=== PATIENT | female | born 1950 | race Caucasian/White ===

== ENCOUNTER 2016-10-06 11:45 | Inpatient (IN) | payer OTHER, MEDICARE ==
[2017-04-29] MEDS ORDERED: MORPHINE SULFATE 15 MG TABLET.SA PO PRN (06:00)
[2017-04-29] MEDS ORDERED: ROPIVACAINE HCL/PF 100 MG, KETOROLAC TROMETHAMINE 30 MG, EPINEPHrine 0.2 MG in NORMAL S... IJ PRN (06:00)
[2017-04-29] MEDS ORDERED: ceFAZolin SODIUM 1 GM VIAL IV PRN (06:00)
[2017-04-29] MEDS: RINGERS SOLUTION,LACTATED 1,000 ML IV PRN ×2 (06:30→07:55)
[2017-04-29] MEDS: TRANEXAMIC ACID 1,000 MG in NORMAL SALINE 100 ML IV PRN ×2 (09:01→09:30)
[2017-04-29] MEDS ORDERED: ZOLPIDEM TARTRATE 5 MG TABLET PO PRN (10:16)
[2017-04-29] MEDS ORDERED: ACETAMINOPHEN 500 MG TABLET PO PRN (10:16)
[2017-04-29] MEDS ORDERED: MAG HYDROX/ALUMINUM HYD/SIMETH 30 ML UDC PO PRN (10:16)
[2017-04-29] MEDS ORDERED: ONDANSETRON HCL/PF 2 MG/ML VIAL IV PRN (10:16)
[2017-04-29] MEDS ORDERED: MAGNESIUM HYDROXIDE 30 ML UDC PO PRN (10:16)
[2017-04-29] MEDS ORDERED: diphenhydrAMINE HCL 50 MG/ML VIAL IV PRN (10:16)
[2017-04-29] MEDS ORDERED: HYDROmorphone HCL 1 MG/ML DISP.SYRIN IV PRN (10:16)
[2017-04-29] MEDS ORDERED: PROMETHAZINE HCL 5 MG in DEXTROSE 5 % IN WATER 50 ML IV PRN ×2 (10:16)
--- NOTE | 2017-04-29 10:22 | OR ---
Operative Report - Dictated Report Narrative: Date: 04/29/2017 Preoperative diagnosis: Right Knee degenerative joint disease. Postoperative diagnosis: Right Knee degenerative joint disease. Procedure: Right Total knee arthroplasty. Surgeon: David Rowland M.D. Criminal Intelligence Analyst: Dmitri Medina PA-C Anesthesia: Spinal with regional block and local periarticular joint injection. Complications: None Specimens: Bone for disposal. Estimated blood loss: Minimal. Tourniquet time: 87 Minutes at 350 millimeters of mercury. Retained implants: Depuy Attune size 6 right lugged cemented posterior stabilized femoral component. Size 5 fixed-bearing cemented tibial platform. 6 by 7 millimeter posterior stabilized cross-linked tibial insert. 35 millimeter medialized patella button. Indications: Mrs. Hamilton is a 67-year-old female who has had long-standing right knee pain. This patient was followed in my clinic for period of time with significant complaints of right knee pain consistent with arthritic changes. They had failed conservative measures including, but not limited to, activity modification, passage of time, medications, and other conservative measures. Patient wished to proceed with surgical treatment. The risks, benefits, and alternatives were discussed in clinic. The risks of , blood clots, bleeding, infection, nerve/tendon blood vessel/ injury, malposition of components, intraoperative fracture, postoperative limited range of motion, persistent pain, failure of components, and need for additional procedures. Patient wished to proceed consent was obtained after answering all questions. Procedure: After marking the correct extremity on the floor, the patient was taken to the operating room. A timeout was performed. IV antibiotics consisting of Ancef were administered prior to the procedure. A regional followed by spinal anesthetic was induced by anesthesia on the operative table with all bony prominences well-padded. Muñoz catheter was placed, and a bump was placed under the operative side buttock. SCDs and NATHANIEL hose were utilized on the nonoperative leg. A well-padded tourniquet was applied to the operative thigh. The operative leg was then pre-scrubbed with ajay cedeño prepped, and draped in a standard sterile fashion. After exsanguinating the extremity with an Esmarch bandage, the tourniquet was inflated. After marking out the anterior knee for standard incision centered over the patella, the skin was incised and dissected down to the joint retinaculum. The joint retinaculum was marked out as well as the horizontal axis of the patella, and a standard medial parapatellar arthrotomy was then made. The most proximal aspect of the quadriceps tendon and the patella tendon insertion were protected from release. A partial synovectomy was performed as well as a resection of the infrapatellar fat pad. The distal femoral fat pad proximal to the trochlea was also resected using cautery. The soft tissues were elevated off the medial aspect of the proximal tibia using a Chávez elevator ensuring that we did not transect the medial collateral ligament. Upon initial evaluation range of motion was approximately 0 degrees to 120 degrees of flexion. There were signs of advanced arthrosis in the medial, lateral, and patellofemoral joint spaces. There were large marginal osteophytes which were removed with a rongeur. The knee was hyperflexed and the patella was tucked laterally. Protecting the surrounding soft tissues with Homans, an entry drill was placed down the femoral canal using Whitesides line for guidance into the entry point. The intramedullary femoral alignment veronica was utilized in order to cut the distal femur in 5 degrees of valgus resecting 10 millimeters of bone. Next the distal femur was sized to a size 6. A posterior referencing guide was utilized to place the distal femoral cutting block in 3 degrees of external rotation. This was pinned into place. The rotation was confirmed both visually and based on anatomic landmarks. The 4 in 1 cutting jig of the appropriate size was utilized in order to make all bony cuts. The angle wing was used to ensure no notching. Retractors were utilized in order to protect surrounding soft tissues. This cut did not result in any excessive notching. We then cut the box centered over the distal femur. This allowed for resection of the anterior and posterior cruciate ligaments. I then turned my attention to the preparation of the tibia. Using an extra medullary tibial alignment veronica, 4 millimeters of bone was resected off the medial articular surface. This was made perpendicular to the mechanical axis of the joint with the alignment veronica centered over the ankle mortise. The alignment veronica was checked and was noted to be parallel to the mechanical axis, centered over the medial one third of the tibial tubercle, paralleling the anterior surface of the tibia. We then turned our attention to the remaining meniscus and soft tissues. These were removed while protecting the surrounding ligaments and soft tissues. The marginal osteophytes off the anterior, posterior, medial, lateral aspects of the femur and tibia were removed. The tibia was sized out to a size 5. Next the tibia was drilled and punched in an externally rotated position. Next the trial femur and a series of tibial inserts were utilized in order to allow for full extension and maximal flexion. It was found that a 7 millimeter insert gave the best range of motion and stability at multiple flexion points as well as at full extension there was less than 2 mm of gapping both medially and laterally. There is minimal anterior translation with the knee at 90 degrees of flexion and no signs of being able to dislocate the knee. The patella was then prepared. The initial thickness was 21 millimeters. This was reamed down to 12 millimeters parallel to the anterior surface of the patella. It was sized out to a size 35 medialized patella button. This was then drilled and trialed. Without any medial restraint the patella tracked appropriately and did not sublux or dislocate. At this point, it was felt these were the appropriate sized implants, and all trials were removed. The standard periarticular joint injection consisting of ropivacaine, Toradol, and epinephrine were injected into the periarticular joint tissues. The bony surfaces were thoroughly irrigated with a pulsatile- suction saline irrigation device. A bone plug from the prior resected anterior chamfer cut was placed into the drill hole at the distal femur. The bony surfaces were then dried in preparation for placement of the implants. The cement was vacuum mixed per the ear mold laboratory technician's instructions. The cement was placed on the dry bony surfaces and posterior aspect of the implants. The implants were impacted into place, removing all extruded cement. At this point anesthesia administered tranexamic acid per protocol intravenously. The knee was placed in extension with axial loading with the trial insert while the cement cured. Once the cement cured, all remaining extruded cement was removed. The knee was placed through a range of motion with the trial insert to ensure appropriate range of motion and stability. Final range of motion was approximately 0 to 120 degrees. The knee was again thoroughly irrigated with pulsatile saline lavage. The final polyethylene insert was then impacted into place ensuring no retained soft tissues. The remaining periarticular joint injection was injected. A medium Hemovac drain was placed exiting superior laterally. The knee was then placed over a triangle and the arthrotomy was closed with interrupted #1 Vicryl after thoroughly irrigating the joint. The deep and subcutaneous tissues were closed with interrupted oh and 3-0 Vicryl respectively. Skin was closed with a running subcutaneous 3-0 Monocryl and Prineo Dermabond dressing. 4 x 4's, Sof-Rol, and a full leg Yandel wrap were applied. All sponge, needle, blade, and instrument counts were correct prior to closing the wounds. Postoperative condition: The patient was awoken and transferred to the postanesthesia care unit in stable condition. Plan is to be admitted to the inpatient medical/surgical floor postoperatively for 24 hours of IV antibiotics , physical therapy, occupational therapy, and medical comanagement. Patient will be weightbearing as tolerated with range of motion as tolerated. DVT prophylaxis will be with SCDs, NATHANIEL hose, and pharmacological anticoagulation. Anticipated hospital stay is approximately 2-4 days.
[2017-04-29] MEDS: DEXTROSE 5%-LACTATED RINGERS 1,000 ML IV PRN ×2 (11:02→20:00)
[2017-04-29] MEDS: ceFAZolin SODIUM 1 GM in DEXTROSE 5 % IN WATER 100 ML IV SCH ×6 (11:50→23:44)
[2017-04-29] MEDS: KETOROLAC TROMETHAMINE 15 MG/ML VIAL IV SCH ×3 (11:50→23:45)
--- NOTE | 2017-04-29 19:32 | PN ---
Subjective - Date and Time Seen Date: 04/29/17 Time: 19:25 Subjective Narrative: Patient jus had operation this morning. He is afebrile and has no complaints . Eager to start PT/OT. Objective - Review of Systems Generalized/Overall Review: Reports: Weight gain. Denies: Weakness, Chills, Fever EENTM: Reports: No Symptoms Reported Respiratory: Denies: Cough, Shortness of Breath Cardiac: Denies: Chest Pain, Edema, Palpitations Abdominal: Denies: Nausea, Vomiting Genitourinary Symptoms: Denies: Urgency, Frequency - Vitals Vitals: Last Vital Signs Temp 36.9 C 04/29/17 18:00 Pulse 69 04/29/17 18:00 Resp 16 04/29/17 18:00 BP 140/71 04/29/17 18:00 Pulse Ox 100 04/29/17 18:00 - Exam Constitutional: Present: Alert, Oriented x3, Morbidly obese ENT Exam: Present: hearing grossly normal Neck: Present: supple Respiratory: Present: normal breath sounds, No rales, No wheezing Cardiovascular/Chest: Present: regular rate, rhythm, no gallop, no JVD Abdomen: Present: Normal bowel sounds, soft, nontender, nondistended Extremity: Present: no pedal edema, no calf tenderness Cauti Physician Documentation - Urinary Catheter Management Urethral (Muñoz) Date of Insertion: 04/29/17 Assessment/Plan - Problems/Diagnosis (1) Status post total right knee replacement Problem: Acute Narrative: for PT/OT (2) Hypertension Problem: Chronic Qualifiers: Hypertension type: essential hypertension Qualified Code(s): I10 - Essential (primary) hypertension (3) Hyperlipidemia Problem: Chronic (4) Anxiety and depression Problem: Chronic (5) GERD (gastroesophageal reflux disease) Problem: Chronic Qualifiers: Esophagitis presence: without esophagitis Qualified Code(s): K21.9 - Gastro -esophageal reflux disease without esophagitis
[2017-04-29] MEDS: SENNOSIDES/DOCUSATE SODIUM 1 TAB TABLET PO SCH (19:59)
[2017-04-29] MEDS: MORPHINE SULFATE 15 MG TABLET.SA PO SCH (19:59)
[2017-04-30] MEDS: KETOROLAC TROMETHAMINE 15 MG/ML VIAL IV SCH ×4 (04:31→22:43)
[2017-04-30 05:28] LABS: Hematocrit 32.4 % (37.0-47.0); Hemoglobin 10.7 gm/dL (12.5-16.0); Mean Corpuscular Hemoglobin 30.4 pg (27-31); Mean Platelet Volume 10.2 fl (6.0-9.5); Platelet Count 226 K/mm3 (150-450); Red Blood Count 3.52 M/mm3 (4.2-5.4); Red Cell Distribution Width 12.8 % (11.5-14.0); White Blood Count 9.1 K/mm3 (4.0-10.5)
[2017-04-30 05:39] LABS: Anion Gap 9.4 mmol/L (6.8-13.8); BUN/Creatinine Ratio 17.3 (9.0-21.6); Carbon Dioxide 29.5 mmol/L (24-32.6); Potassium 3.9 mmol/L (3.4-4.6)
[2017-04-30] MEDS: oxyCODONE HCL/ACETAMINOPHEN 1 TAB TABLET PO PRN ×2 (07:28→18:39)
--- NOTE | 2017-04-30 07:49 | PN ---
Subjective - Date and Time Seen Date: 04/30/17 Time: 07:47 Subjective Narrative: Subjective: Reports no pain but some mild stiffness. Was able to walk in the chatterjee with therapy. Pain is well-controlled. Voiding without any complications. Tolerating by mouth intake. Denies any nausea or vomiting. Denies calf pain. Slept well. Physical exam: Alert and oriented to person, place and time Right lower Extremity: Palpable dorsalis pedis pulse. Sensation grossly intact to light touch. Dressings clinic dry. Able to flex and extend ankle and toes. No excessive drainage. Calf and thigh are soft and nontender. Assessment: Postop day 1 status post right total knee arthroplasty. Plan: Continue with physical and occupational therapy weightbearing as tolerated. Continue with anticoagulation. 24 hours postoperative prophylactic antibiotics. Pain control with goal to rely on oral medications. Continue bowel regimen. Will need 6 weeks with walker or assitive device to protect joint while ambulating during the recovery process. Discharge planning. Discontinue drain and Muñoz catheter. Repeat labs in a.m. Objective - Vitals Vitals: Last Vital Signs Temp 36.8 C 04/30/17 02:00 Pulse 76 04/30/17 02:00 Resp 16 04/30/17 02:00 BP 127/70 04/30/17 02:00 Pulse Ox 97 04/30/17 02:00 - Abnormal Lab Findings Abnormal Lab Findings: Abnormal Lab Results 04/30/17 Range/Units 05:18 RBC 3.52 L (4.2-5.4) M/mm3 Hgb 10.7 L (12.5-16.0) gm/dL Hct 32.4 L (37.0-47.0) % MPV 10.2 H (6.0-9.5) fl - Exam Constitutional: Present: Alert, Oriented x3 Cauti Physician Documentation - Urinary Catheter Management Urethral (Muñoz) Date of Insertion: 04/29/17 Assessment/Plan - Problems/Diagnosis (1) Acute blood loss anemia Problem: Chronic (2) Hyperlipidemia Problem: Chronic (3) Status post total right knee replacement Problem: Acute (4) Anxiety and depression Problem: Chronic (5) Hypertension Problem: Chronic Qualifiers: Hypertension type: essential hypertension Qualified Code(s): I10 - Essential (primary) hypertension (6) GERD (gastroesophageal reflux disease) Problem: Chronic
[2017-04-30] MEDS: ENOXAPARIN SODIUM 40 MG/0.4 ML SYRG SC SCH (09:18)
[2017-04-30] MEDS: MORPHINE SULFATE 15 MG TABLET.SA PO SCH ×2 (09:18→20:46)
--- NOTE | 2017-04-30 09:43 | PN ---
Subjective - Date and Time Seen Date: 04/30/17 Time: 09:42 Subjective Narrative: POD # 1 . Afebrile Tmax 36.9. Says pain is not bothering but more of the leg stiffness. Objective - Review of Systems Generalized/Overall Review: Denies: Chills, Fever EENTM: Reports: No Symptoms Reported Respiratory: Denies: Cough, Shortness of Breath, Orthopnea Cardiac: Denies: Chest Pain, Edema, Palpitations Abdominal: Denies: Nausea, Vomiting Genitourinary Symptoms: Denies: Urgency, Frequency Musculoskeletal Complaints: Reports: Joint Pain - minimal - Vitals Vitals: Last Vital Signs Temp 36.8 C 04/30/17 02:00 Pulse 76 04/30/17 02:00 Resp 16 04/30/17 02:00 BP 127/70 04/30/17 02:00 Pulse Ox 97 04/30/17 02:00 - Abnormal Lab Findings Abnormal Lab Findings: Abnormal Lab Results 04/30/17 Range/Units 05:18 RBC 3.52 L (4.2-5.4) M/mm3 Hgb 10.7 L (12.5-16.0) gm/dL Hct 32.4 L (37.0-47.0) % MPV 10.2 H (6.0-9.5) fl - Exam Constitutional: Present: Alert, Oriented x3, Cooperative, Morbidly obese ENT Exam: Present: hearing grossly normal Neck: Present: supple Breasts: Present: Exam deferred Respiratory: Present: normal breath sounds, No rales, No wheezing Cardiovascular/Chest: Present: regular rate, rhythm, no JVD, no murmur Abdomen: Present: Normal bowel sounds, soft, nontender, nondistended Extremity: Present: no pedal edema, no calf tenderness Cauti Physician Documentation - Urinary Catheter Management Urethral (Muñoz) Date of Insertion: 04/29/17 Date of Removal: 04/30/17 Time of Removal: 07:28 Assessment/Plan - Problems/Diagnosis (1) Status post total right knee replacement Problem: Acute Narrative: POD # 1. continue with PT/OT. (2) Hypertension Problem: Chronic Qualifiers: Hypertension type: essential hypertension Qualified Code(s): I10 - Essential (primary) hypertension (3) Hyperlipidemia Problem: Chronic (4) Anxiety and depression Problem: Chronic (5) GERD (gastroesophageal reflux disease) Problem: Chronic Qualifiers: Esophagitis presence: without esophagitis Qualified Code(s): K21.9 - Gastro -esophageal reflux disease without esophagitis Narrative: nimo restart her omperazole. (6) Acute blood loss anemia Problem: Chronic
[2017-04-30] MEDS ORDERED: ALBUTEROL SULFATE 2.5 MG/3 ML VIAL.NEB IH PRN (10:12)
[2017-04-30] MEDS ORDERED: PANTOPRAZOLE SODIUM 20 MG TABLET.DR PO ONE (11:00)
[2017-04-30] MEDS: METOPROLOL TARTRATE 50 MG TABLET PO SCH (20:46)
[2017-04-30] MEDS: SENNOSIDES/DOCUSATE SODIUM 1 TAB TABLET PO SCH (20:47)
[2017-05-01] MEDS: oxyCODONE HCL/ACETAMINOPHEN 1 TAB TABLET PO PRN ×2 (01:44→11:52)
[2017-05-01] MEDS: KETOROLAC TROMETHAMINE 15 MG/ML VIAL IV SCH (04:50)
[2017-05-01 06:00] LABS: Hematocrit 32.5 % (37.0-47.0); Hemoglobin 10.4 gm/dL (12.5-16.0); Mean Cell Volume 93.9 fl (78-100); Mean Corpuscular Hemoglobin 30.1 pg (27-31); Mean Platelet Volume 10.1 fl (6.0-9.5); Platelet Count 209 K/mm3 (150-450); Red Blood Count 3.46 M/mm3 (4.2-5.4); Red Cell Distribution Width 12.7 % (11.5-14.0); White Blood Count 8.6 K/mm3 (4.0-10.5)
[2017-05-01 06:07] LABS: Anion Gap 7.4 mmol/L (6.8-13.8); BUN/Creatinine Ratio 11.4 (9.0-21.6); Calcium * 8.9 mg/dL (7.9-10.9); Carbon Dioxide 31.4 mmol/L (24-32.6); Estimated Creat Clear 66.4; Potassium 3.8 mmol/L (3.4-4.6)
[2017-05-01 06:58] VITALS: BP 123/51
[2017-05-01] MEDS ORDERED: PANTOPRAZOLE SODIUM 20 MG TABLET.DR PO SCH (07:00)
--- NOTE | 2017-05-01 08:42 | PN ---
Subjective - Date and Time Seen Date: 05/01/17 Time: 08:36 Subjective Narrative: Patient has done the steps w/o problems. She does have some cough and noticed wheeziness earlier. Tmax 37.7. Objective - Review of Systems Generalized/Overall Review: Denies: Chills EENTM: Reports: No Symptoms Reported Respiratory: Reports: Cough, Wheezing Cardiac: Denies: Chest Pain, Edema, Palpitations Abdominal: Denies: Nausea, Vomiting Genitourinary Symptoms: Denies: Urgency, Frequency Musculoskeletal Complaints: Reports: Joint Pain - Vitals Vitals: Last Vital Signs Temp 36.9 C 05/01/17 06:57 Pulse 66 05/01/17 06:57 Resp 18 05/01/17 06:57 BP 123/51 05/01/17 06:57 Pulse Ox 96 05/01/17 06:57 - Abnormal Lab Findings Abnormal Lab Findings: Abnormal Lab Results 05/01/17 Range/Units 05:38 RBC 3.46 L (4.2-5.4) M/mm3 Hgb 10.4 L (12.5-16.0) gm/dL Hct 32.5 L (37.0-47.0) % MPV 10.1 H (6.0-9.5) fl - Exam Constitutional: Present: Oriented x3, Cooperative ENT Exam: Present: hearing grossly normal Neck: Present: supple Breasts: Present: Exam deferred Respiratory: Present: normal breath sounds, No rales, No wheezing Cardiovascular/Chest: Present: regular rate, rhythm, no JVD, no murmur Abdomen: Present: Normal bowel sounds, soft, nontender, nondistended Extremity: Present: no pedal edema, no calf tenderness Cauti Physician Documentation - Urinary Catheter Management Urethral (Muñoz) Date of Insertion: 04/29/17 Date of Removal: 04/30/17 Time of Removal: 07:28 Assessment/Plan - Problems/Diagnosis (1) Status post total right knee replacement Problem: Acute Narrative: POD # 2. Continue PT/OT. (2) Hypertension Problem: Chronic Qualifiers: Hypertension type: essential hypertension Qualified Code(s): I10 - Essential (primary) hypertension Narrative: controlled (3) Hyperlipidemia Problem: Chronic (4) Anxiety and depression Problem: Chronic (5) GERD (gastroesophageal reflux disease) Problem: Chronic Qualifiers: Esophagitis presence: without esophagitis Qualified Code(s): K21.9 - Gastro -esophageal reflux disease without esophagitis (6) Wheezing Problem: Acute Narrative: per patient. I did not hear it on my auscultation. she has bronchodilator PRN. she was told to do lozenges or warm saline gurgles. if not better will start antibiotics.
--- NOTE | 2017-05-01 08:58 | DS ---
(1) Acute blood loss anemia Problem: Acute (2) Hyperlipidemia Problem: Chronic (3) Status post total right knee replacement Problem: Acute (4) Anxiety and depression Problem: Chronic (5) Hypertension Problem: Chronic Qualifiers: Hypertension type: essential hypertension Qualified Code(s): I10 - Essential (primary) hypertension (6) GERD (gastroesophageal reflux disease) Problem: Chronic Qualifiers: Esophagitis presence: without esophagitis Qualified Code(s): K21.9 - Gastro -esophageal reflux disease without esophagitis Description of Stay: Mrs. Hamilton was admitted to the floor after undergoing right total knee arthroplasty. Tolerated this well. Was admitted to the floor postoperatively for 24 hours of IV antibiotics, pain control, medical comanagement, and occupational and physical therapy. OT and PT were consulted to assist with activities of daily living and ambulation. Was made weightbearing as tolerated with range of motion as tolerated. Pain was initially controlled with IV regimen. This was transitioned to oral once tolerating a by mouth intake. Was resumed on home diet and medications. Had a Muñoz catheter inserted and the operating room which was discontinued on postoperative day 1. A drain was placed intraoperatively into the knee which was discontinued on postoperative day 1. Lovenox SCD and NATHANIEL hose were utilized for DVT prophylaxis. Vital signs remained stable to the hospital course. Serial labs were obtained which showed a final hemoglobin of 10.4 grams. BMP was reviewed and was stable. Physical examination throughout the hospital course showed an extremity that had sensation that was intact to light touch, palpable pulses, a benign wound, motor intact to the toes, ankle, and knee. Knee range of motion was approximately 0 degrees to 70 degrees. Once an oral pain regimen was tolerated and physical therapy goals were met, it was felt that they were stable for discharge to home. Instructions: Continue with weightbearing as tolerated and range of motion as tolerated. She is okay to shower as long as there is no drainage. She is instructed to keep the wound clean and dry. If there is any drainage she is instructed to cover with dry gauze and tape. Change every 2-3 days as needed. Continue with physical therapy. Resume home diet. Report any fever over 101.5 Fahrenheit, uncontrolled pain, increased drainage, foul odor of drainage, new or increased calf pain or shortness of breath, or any other significant complaints. A 325mg dialy aspirin will be started after finishing anticoagulation if not allergic. Continue with NATHANIEL hose on the operative extremity until instructed otherwise. No driving until instructed otherwise. Follow up in approximately 10-14 days. Procedures Performed: see notes below List Procedures: Right total knee arthroplasty Discharge Disposition: Home self care Disposition: Home self-care Condition: Good Discharge Activity: Activity as tolerated, Weight bearing Discharge Diet: General/regular food Fdc Therapy: Physicial Therapy Referrals: Cathryn Montes MD [Primary Care Provider] - Additional Patient Instructions (free text): Follow up with Dr. Rowland on April at 9:30 Am. Prescriptions (Any new or edited meds): Enoxaparin Sodium [Lovenox] 40 mg SC Q24H #7 disp.syrin Morphine Sulfate [Ms Contin] 15 mg PO Q12H #20 tablet.sa oxyCODONE HCL/ACETAMINOPHEN [Percocet 5 MG/325 MG] 2 tab PO Q4H PRN #90 tablet PRN Reason: Moderate Pain Complete Home Medications List: Complete Home Medication List: Furosemide [Lasix] 40 mg PO DAILY 10/24/13 Metoprolol Tartrate [Lopressor] 50 mg PO BID 10/24/13 Omeprazole [Prilosec] 20 mg PO DAILY 10/24/13 Albuterol Sulfate [Proair Hfa] 1 puff IH Q4H PRN 04/06/17 Fenofibrate [Lofibra] 160 mg PO DAILY 04/06/17 Naproxen Sodium [Aleve] 220 mg PO BID PRN 04/06/17 Potassium Chloride [Klor-Con 10] 10 meq PO DAILY 04/06/17 Venlafaxine HCl [Venlafaxine HCl ER] 225 mg PO DAILY 04/06/17 Enoxaparin Sodium [Lovenox] 40 mg SC Q24H #7 disp.syrin 05/01/17 Morphine Sulfate [Ms Contin] 15 mg PO Q12H #20 tablet.sa 05/01/17 Sennosides/Docusate Sodium [Senokot-S] 2 tab PO HS tablet 05/01/17 oxyCODONE HCL/ACETAMINOPHEN [Percocet 5 MG/325 MG] 2 tab PO Q4H PRN #90 tablet 05/01/17 Amb Orders for Discharge: PT Evaluation and Treatment Facility: [facility], Location: Rehabilitation Services
[2017-05-01] MEDS ORDERED: VENLAFAXINE HCL 225 MG PO SCH (09:00)
[2017-05-01] MEDS ORDERED: POTASSIUM CHLORIDE 10 MEQ TABLET.SA PO SCH (09:00)
[2017-05-01] MEDS ORDERED: FUROSEMIDE 40 MG TABLET PO SCH (09:00)
[2017-05-01] MEDS ORDERED: VENLAFAXINE HCL 150 MG, VENLAFAXINE HCL 75 MG PO SCH ×2 (09:00)
[2017-05-01] MEDS: METOPROLOL TARTRATE 50 MG TABLET PO SCH (09:02)
[2017-05-01] MEDS: ENOXAPARIN SODIUM 40 MG/0.4 ML SYRG SC SCH (09:04)
[2017-05-01] MEDS: MORPHINE SULFATE 15 MG TABLET.SA PO SCH (09:07)
== END 2017-05-01 16:00 | disposition home or self-care (01) | DRG 470 ==
LOC: MS 04-29 05:47
PROVIDERS: ADMIT Orthopaedic Surgery; ATTEND Orthopaedic Surgery
PROC: 0SRC0J9 Replacement of Right Knee Joint with Synthetic Substitute, Cemented, Open Approach (ICD-10-PCS; principal; 2017-04-29 08:00)
DX: M17.0 Bilateral primary osteoarthritis of knee (principal); D62 Acute posthemorrhagic anemia; F41.8 Other specified anxiety disorders; I10 Essential (primary) hypertension; E78.5 Hyperlipidemia, unspecified; K21.9 Gastro-esophageal reflux disease without esophagitis

== ENCOUNTER 2017-05-21 11:36 | Inpatient (IN) | payer OTHER, MEDICARE ==
[2017-05-21] MEDS ORDERED: ONDANSETRON HCL/PF 2 MG/ML VIAL IV PRN (12:00)
[2017-05-21] MEDS ORDERED: PROMETHAZINE HCL 25 MG in DEXTROSE 5 % IN WATER 50 ML IV PRN ×2 (12:00)
[2017-05-21] MEDS ORDERED: HYDROcodone/ACETAMINOPHEN 1 EACH TABLET PO PRN (12:00)
[2017-05-21] MEDS ORDERED: diphenhydrAMINE HCL 50 MG/ML VIAL IV PRN (12:00)
[2017-05-21] MEDS ORDERED: MAG HYDROX/ALUMINUM HYD/SIMETH 30 ML UDC PO PRN (12:00)
[2017-05-21] MEDS ORDERED: ACETAMINOPHEN 500 MG TABLET PO PRN (12:00)
[2017-05-21] MEDS: HYDROmorphone HCL 2 MG/ML VIAL IV PRN ×3 (14:20→23:12)
[2017-05-21] MEDS ORDERED: FUROSEMIDE 40 MG TABLET PO PRN (16:43)
[2017-05-21] MEDS ORDERED: SENNOSIDES/DOCUSATE SODIUM 1 TAB TABLET PO PRN (16:43)
[2017-05-21] MEDS ORDERED: POTASSIUM CHLORIDE 10 MEQ TABLET.SA PO PRN (17:00)
[2017-05-21] MEDS: METOPROLOL TARTRATE 50 MG TABLET PO SCH (21:46)
[2017-05-22] MEDS: PANTOPRAZOLE SODIUM 20 MG TABLET.DR PO SCH (06:34)
[2017-05-22] MEDS: HYDROmorphone HCL 2 MG/ML VIAL IV PRN ×4 (06:36→22:33)
[2017-05-22] MEDS: VENLAFAXINE HCL 150 MG, VENLAFAXINE HCL 75 MG PO SCH ×2 (08:42)
[2017-05-22] MEDS: METOPROLOL TARTRATE 50 MG TABLET PO SCH ×2 (08:43→20:50)
[2017-05-22] MEDS: FENOFIBRATE,MICRONIZED 134 MG CAPSULE PO SCH (08:44)
[2017-05-22] MEDS ORDERED: VENLAFAXINE HCL 225 MG PO SCH (09:00)
--- NOTE | 2017-05-22 11:20 | PREOP NOTE ---
Preoperative Progress Note - Preoperative Changes Changes to Preop Condition?: No Changes
[2017-05-22] MEDS ORDERED: RINGERS SOLUTION,LACTATED 1,000 ML IV ONE ×2 (13:20→14:30)
[2017-05-22] MEDS ORDERED: ceFAZolin SODIUM 1 GM VIAL IV ONE (13:45)
[2017-05-22] MEDS ORDERED: BUPIVACAINE HCL 50 ML VIAL IJ ONE ×2 (14:37)
[2017-05-22] MEDS ORDERED: ZOLPIDEM TARTRATE 5 MG TABLET PO PRN (15:18)
[2017-05-22] MEDS ORDERED: MAGNESIUM HYDROXIDE 30 ML UDC PO PRN (15:18)
[2017-05-22] MEDS: DEXTROSE 5%-LACTATED RINGERS 1,000 ML IV PRN (16:11)
[2017-05-22] MEDS: KETOROLAC TROMETHAMINE 15 MG/ML VIAL IV SCH ×2 (17:00→22:32)
[2017-05-22] MEDS: ceFAZolin SODIUM 1 GM in DEXTROSE 5 % IN WATER 100 ML IV SCH ×2 (17:58)
[2017-05-22] MEDS: ASPIRIN 81 MG TABLET.DR PO SCH (20:50)
[2017-05-23] MEDS: DEXTROSE 5%-LACTATED RINGERS 1,000 ML IV PRN (00:10)
[2017-05-23] MEDS: ceFAZolin SODIUM 1 GM in DEXTROSE 5 % IN WATER 100 ML IV SCH ×4 (00:10→05:48)
[2017-05-23] MEDS: HYDROmorphone HCL 2 MG/ML VIAL IV PRN ×2 (03:07→07:11)
[2017-05-23] MEDS: KETOROLAC TROMETHAMINE 15 MG/ML VIAL IV SCH ×4 (04:08→22:23)
[2017-05-23] MEDS: PANTOPRAZOLE SODIUM 20 MG TABLET.DR PO SCH (06:57)
--- NOTE | 2017-05-23 08:36 | PN ---
Subjective - Date and Time Seen Date: 05/23/17 Time: 08:32 Subjective Narrative: Subjective: Reports mild discomfort. Was able to while, all with therapy. Pain is well-controlled. Voiding without any complications. Tolerating by mouth intake. Denies any nausea or vomiting. Denies calf pain. Slept well. Physical exam: Alert and oriented to person, place and time Right lower Extremity: Palpable dorsalis pedis pulse. Sensation grossly intact to light touch. Dressings clean and dry. Able to flex and extend ankle and toes. No excessive drainage. Calf and thigh are soft and nontender. Assessment: Postop day 1 status post revision repair of right total knee retinacular disruption. Plan: Continue with physical and occupational therapy 50% weightbearing. Continue with anticoagulation - aspirin twice a day. 24 hours postoperative prophylactic antibiotics. Pain control with goal to rely on oral medications. Continue bowel regimen. Will need 6 weeks with walker or assitive device to protect joint while ambulating during the recovery process. Discharge planning. Discontinue Muñoz catheter. She states that she does not have any assistance nor access to home health until Thursday and thus she will need to stay in the hospital for assistance as well as due to the fact that she has limited mobility and continued pain postoperatively. Objective - Vitals Vitals: Last Vital Signs Temp 36.9 C 05/23/17 07:00 Pulse 76 05/23/17 07:00 Resp 20 05/23/17 07:00 BP 152/59 05/23/17 07:00 Pulse Ox 92 05/23/17 07:00 Assessment/Plan - Problems/Diagnosis (1) Status post total right knee replacement Problem: Chronic (2) Anxiety and depression Problem: Chronic (3) GERD (gastroesophageal reflux disease) Problem: Chronic Qualifiers: (4) Hyperlipidemia Problem: Chronic (5) Hypertension Problem: Chronic Qualifiers: (6) Pain Problem: Acute (7) Limited mobility Problem: Acute
[2017-05-23] MEDS: VENLAFAXINE HCL 150 MG, VENLAFAXINE HCL 75 MG PO SCH ×2 (09:48)
[2017-05-23] MEDS: ASPIRIN 81 MG TABLET.DR PO SCH ×2 (09:49→20:49)
[2017-05-23] MEDS: METOPROLOL TARTRATE 50 MG TABLET PO SCH ×2 (09:49→20:49)
[2017-05-23] MEDS: FENOFIBRATE,MICRONIZED 134 MG CAPSULE PO SCH (09:52)
[2017-05-23] MEDS: oxyCODONE HCL/ACETAMINOPHEN 1 TAB TABLET PO PRN ×3 (11:09→21:39)
[2017-05-23] MEDS: MORPHINE SULFATE 15 MG TABLET.SA PO SCH (20:49)
[2017-05-24] MEDS: oxyCODONE HCL/ACETAMINOPHEN 1 TAB TABLET PO PRN ×5 (02:11→20:42)
[2017-05-24] MEDS: KETOROLAC TROMETHAMINE 15 MG/ML VIAL IV SCH ×2 (04:28→11:29)
[2017-05-24] MEDS: PANTOPRAZOLE SODIUM 20 MG TABLET.DR PO SCH (06:59)
--- NOTE | 2017-05-24 08:30 | PN ---
Subjective - Date and Time Seen Date: 05/24/17 Time: 08:28 Subjective Narrative: Subjective: Reports mild discomfort. Was able to walk in the room as well as the chatterjee with therapy. Pain is well-controlled. Voiding without any complications. Tolerating by mouth intake. Denies any nausea or vomiting. Denies calf pain. Slept well. Physical exam: Alert and oriented to person, place and time Right lower Extremity: Palpable dorsalis pedis pulse. Sensation grossly intact to light touch. Dressings clean and dry. Able to flex and extend ankle and toes. No excessive drainage. Calf and thigh are soft and nontender. 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 Plan: Continue with physical and occupational therapy 50% weightbearing. Continue with anticoagulation - aspirin twice a day. Pain control with goal to rely on oral medications. She was somewhat confused yesterday and we will try to limit the IV Dilaudid. Continue bowel regimen. Will need 6 weeks with walker or assitive device to protect joint while ambulating during the recovery process. Discharge planning- home with home health tomorrow Objective - Vitals Vitals: Last Vital Signs Temp 36.7 C 05/24/17 07:50 Pulse 69 05/24/17 07:50 Resp 18 05/24/17 07:50 BP 168/80 05/24/17 07:50 Pulse Ox 98 05/24/17 07:50 Assessment/Plan - Problems/Diagnosis (1) Status post total right knee replacement Problem: Chronic (2) Anxiety and depression Problem: Chronic (3) GERD (gastroesophageal reflux disease) Problem: Chronic Qualifiers: (4) Hyperlipidemia Problem: Chronic (5) Hypertension Problem: Chronic Qualifiers: (6) Pain Problem: Acute (7) Limited mobility Problem: Acute
[2017-05-24] MEDS: METOPROLOL TARTRATE 50 MG TABLET PO SCH ×2 (08:42→20:41)
[2017-05-24] MEDS: FENOFIBRATE,MICRONIZED 134 MG CAPSULE PO SCH (08:42)
[2017-05-24] MEDS: VENLAFAXINE HCL 150 MG, VENLAFAXINE HCL 75 MG PO SCH ×2 (08:42)
[2017-05-24] MEDS: ASPIRIN 81 MG TABLET.DR PO SCH ×2 (08:42→20:42)
[2017-05-24] MEDS: MORPHINE SULFATE 15 MG TABLET.SA PO SCH ×2 (08:46→20:42)
[2017-05-25] MEDS: oxyCODONE HCL/ACETAMINOPHEN 1 TAB TABLET PO PRN ×3 (03:20→12:43)
[2017-05-25] MEDS: PANTOPRAZOLE SODIUM 20 MG TABLET.DR PO SCH (06:57)
[2017-05-25] MEDS: VENLAFAXINE HCL 150 MG, VENLAFAXINE HCL 75 MG PO SCH ×2 (08:27)
[2017-05-25] MEDS: FENOFIBRATE,MICRONIZED 134 MG CAPSULE PO SCH (08:27)
[2017-05-25] MEDS: METOPROLOL TARTRATE 50 MG TABLET PO SCH (08:27)
[2017-05-25] MEDS: ASPIRIN 81 MG TABLET.DR PO SCH (08:27)
[2017-05-25 10:18] VITALS: BP 148/87
[2017-05-25] MEDS: MORPHINE SULFATE 15 MG TABLET.SA PO SCH (10:27)
--- NOTE | 2017-05-25 10:51 | DS ---
(1) Status post total right knee replacement Problem: Chronic (2) Anxiety and depression Problem: Chronic (3) GERD (gastroesophageal reflux disease) Problem: Chronic Qualifiers: (4) Hyperlipidemia Problem: Chronic (5) Hypertension Problem: Chronic Qualifiers: (6) Pain Problem: Acute (7) Limited mobility Problem: Acute Description of Stay: Mrs. Hamilton was returned to the floor after undergoing repair of torn medial retinaculum status post total knee arthroplasty on hospital day 2. Tolerated this well. Was admitted to the floor postoperatively for 24 hours of IV antibiotics, pain control, medical comanagement, and occupational and physical therapy. OT and PT were consulted to assist with activities of daily living and ambulation. Was made 50% weightbearing with the knee and an immobilizer in order to prevent any range of motion. Pain was initially controlled with IV regimen. This was transitioned to oral once tolerating a by mouth intake. Was resumed on home diet and medications. Had a Muñoz catheter inserted and the operating room which was discontinued on postoperative day 1. Aspirin, SCD and NATHANIEL hose were utilized for DVT prophylaxis. Vital signs remained stable to the hospital course. Physical examination throughout the hospital course showed an extremity that had sensation that was intact to light touch, palpable pulses, a benign wound, motor intact to the toes, ankle, and knee. Once an oral pain regimen was tolerated and physical therapy goals were met, it was felt that they were stable for discharge to home. Instructions: Continue with weightbearing as tolerated and no range of motion with his knee in the knee immobilizer. Keep the wound clean and dry. Cover with dry gauze and tape. Change every 2-3 days as needed. Cover wound while showering. Continue with physical therapy. Resume home diet. Report any fever over 101.5 Fahrenheit, uncontrolled pain, increased drainage, foul odor of drainage, new or increased calf pain or shortness of breath, or any other significant complaints. A 81mg twice daily aspirin will be started after finishing anticoagulation if not allergic. Continue with NATHANIEL hose on the operative extremity until instructed otherwise. No driving until instructed otherwise. Follow up in approximately 10-14 days. Procedures Performed: see notes below List Procedures: Repair of right total knee joint retinaculum Discharge Disposition: Home self care Disposition: Home self-care Condition: Good Discharge Activity: Weight bearing, Other - knee immobilizer no range of motion Discharge Diet: General/regular food Assisted Therapy: Physicial Therapy Additional Patient Instructions (free text): [facility] at discharge, please call and fax discharge orders to them. Prescriptions (Any new or edited meds): Morphine Sulfate [Ms Contin] 15 mg PO Q12H #10 tablet. oxyCODONE HCL/ACETAMINOPHEN [Percocet 5 MG/325 MG] 2 tab PO Q4H PRN #90 tablet PRN Reason: Moderate Pain Complete Home Medications List: Complete Home Medication List: Furosemide [Lasix] 40 mg PO DAILY PRN 10/24/13 Metoprolol Tartrate [Lopressor] 50 mg PO BID 10/24/13 Omeprazole [Prilosec] 20 mg PO DAILY 10/24/13 Fenofibrate [Lofibra] 160 mg PO DAILY 04/06/17 Naproxen Sodium [Aleve] 220 mg PO BID PRN 04/06/17 Potassium Chloride [Klor-Con 10] 10 meq PO DAILY PRN 04/06/17 Venlafaxine HCl [Venlafaxine HCl ER] 225 mg PO DAILY 04/06/17 oxyCODONE HCL/ACETAMINOPHEN [Percocet 5 MG/325 MG] 2 tab PO Q4H PRN #90 tablet 05/01/17 Sennosides/Docusate Sodium [Senokot-S] 2 tab PO HS PRN 05/21/17 Aspirin [Aspirin Enteric Coated] 81 mg PO BID tablet. 05/25/17 Morphine Sulfate [Ms Contin] 15 mg PO Q12H #10 tablet. 05/25/17 oxyCODONE HCL/ACETAMINOPHEN [Percocet 5 MG/325 MG] 2 tab PO Q4H PRN #90 tablet 05/25/17
== END 2017-05-25 13:00 | disposition home health service (06) | DRG 501 ==
LOC: MS 11:36 → OBSVTOIN 12:35 → INTOOBSV 12:35 → OBSVTOIN 05-22 12:35
PROVIDERS: ADMIT Orthopaedic Surgery; ATTEND Orthopaedic Surgery
PROC: 0LQQ0ZZ Repair Right Knee Tendon, Open Approach (ICD-10-PCS; principal; 2017-05-22 14:00)
DX: S83.004A Unspecified dislocation of right patella, initial encounter (principal); T84.022A Instability of internal right knee prosthesis, initial encounter; X50.1XXA Overexertion from prolonged static or awkward postures, initial encounter; Y92.009 Unspecified place in unspecified non-institutional (private) residence as the place of occurrence of the external cause; I10 Essential (primary) hypertension; E78.5 Hyperlipidemia, unspecified; F41.8 Other specified anxiety disorders
CPT/HCPCS: 27381; 73560; 87081; 97116; 97161; G0378; G0379